=== PATIENT | male | born 1980 | race Caucasian/White ===

== ENCOUNTER → 2018-12-01 11:36 | Emergency (ER) | payer OTHER ==
[~2018-12-01 11:36] MED LIST: Iohexol 300* (CONTRAST) 10 ML SDV IV ONE
[2018-12-01 13:17] LABS: ABS Basophils 0 10^3/ul (0-0.2); ABS Eosinophils 0.1 10^3/ul (0-0.6); ABS Lymphocytes 1.3 10^3/ul (1.0-4.8); ABS Neutrophils 3.8 10^3/ul (1.5-7.7); ABS Nucleated RBC 0 10^3/ul; Eosinophil % 0.8 %; Hematocrit 43 % (36-46); Mean Corpuscular HGB Conc 35 g/dL (31-36); Mean Corpuscular Hemoglobin 31 pg (27-31); Mean Corpuscular Volume 89 fL (80-94); Nucleated Red Blood Cells % 0.1; Platelet Count 173 10^3/uL (150-450); Red Blood Count 4.82 10^6 /uL (4.18-5.48); Red Cell Distribution Width 13 % (10.5-15); White Blood Count 6.1 10^3/uL (3.5-10.8)
[2018-12-01 13:34] LABS: Albumin 4.3 g/dL (3.2-5.2); Albumin/Globulin Ratio 1.5 (1-3); C Reactive Protein 68.1 mg/L (<8.01); Calcium 9.3 mg/dL (8.6-10.3); EGFR Non-African American 106.6 (>60); Globulin 2.8 g/dL (2-4); Potassium 4.7 mmol/L (3.5-5.0); Total Bilirubin 0.8 mg/dL (0.2-1.0); Total Protein 7.1 g/dL (6.4-8.9)
--- NOTE | 2018-12-01 16:26 | ED ---
Neck Pain - HPI Summary HPI Summary: This patient is a 38 year old M presenting to [facility] with a chief complaint of pain and swelling in bilateral lymph nodes with fever of 102F today. Neck pain currently rated 8/10 upon triage. He reports pain and swelling on the left side of his neck for the past few days for which he saw his primary care provider who did an Xray and found a stone in the salivary gland. He states his provider does not think his current symptoms are related to the recent findings. Patient is currently taking Amoxicillin. Patient denies SOB, throat pain, post nasal drip, and difficulty swallowing. - History of Current Complaint Chief Complaint: EDNeckComplaint Stated Complaint: PT STATES HE HAS BACTERIAL INFECTION IN LYMPH NODE Hx Obtained From: Patient Onset/Duration Of Injury/Symptoms: Days Mechanism Of Injury: No Known Trauma Timing: Constant Onset/Duration: Gradual Onset Pain Intensity: 8 Pain Scale Used: 0-10 Numeric Location: Diffuse - lymph nodes Character: Other: - swelling Alleviating Factors: Nothing Associated Signs & Symptoms: Positive: Swelling, Fever - Allergies/Home Medications Allergies/Adverse Reactions: Allergies Allergy/AdvReac Type Severity Reaction Status Date / Time No Known Allergies Allergy Verified 12/01/18 11:44 Home Medications: Home Medications NK [No Home Medications Reported] 12/01/18 [History Confirmed 12/01/18] PMH/Surg Hx/FS Hx/Imm Hx Cardiovascular History: Denies: Hx Hypertension Respiratory History: Reports: Other Respiratory Problems/Disorders - 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 Negative: Sore Throat, Nasal Discharge Negative: Shortness Of Breath All Other Systems Reviewed And Are Negative: Yes Physical Exam - Summary Physical Exam Summary: VITAL SIGNS: Reviewed. GENERAL: Patient is a well-developed and nourished male who is lying comfortable in the stretcher. Patient is not in any acute respiratory distress. HEAD AND FACE: No signs of trauma. No ecchymosis, hematomas or skull depressions. No sinus tenderness. EYES: PERRLA, EOMI x 2, No injected conjunctiva, no nystagmus. EARS: Hearing grossly intact. Ear canals and tympanic membranes are within normal limits. MOUTH: Oropharynx within normal limits. NECK: Bilateral lymphadenopathy which is tender to palpation, trachea is midline , , no JVD, no carotid bruit, no c-spine tenderness, neck with full ROM. CHEST: Symmetric, no tenderness at palpation LUNGS: Clear to auscultation bilaterally. No wheezing or crackles. CVS: Regular rate and rhythm, S1 and S2 present, no murmurs or gallops appreciated. ABDOMEN: Soft, non-tender. No signs of distention. No rebound no guarding, and no masses palpated. Bowel sounds are normal. EXTREMITIES: FROM in all major joints, no edema, no cyanosis or clubbing. NEURO: Alert and oriented x 3. No acute neurological deficits. Speech is normal and follows commands. SKIN: Dry and warm Triage Information Reviewed: Yes Vital Signs On Initial Exam: Initial Vitals Temp Pulse Resp BP Pulse Ox 98.3 F 75 16 123/91 99 12/01/18 11:39 12/01/18 11:39 12/01/18 11:39 12/01/18 11:39 12/01/18 11:39 Vital Signs Reviewed: Yes Diagnostics - Vital Signs Vital Signs Temp Pulse Resp BP Pulse Ox 12/01/18 14:21 98.5 F 71 12 147/81 100 12/01/18 11:39 98.3 F 75 16 123/91 99 - Laboratory Lab Results: Lab Results 12/01/18 12/01/18 Range/Units 13:10 13:10 WBC 6.1 (3.5-10.8) 10^3/uL RBC 4.82 (4.18-5.48) 10^6 /uL Hgb 15.0 (14.0-18.0) g/dL Hct 43 (36-46) % MCV 89 (80-94) fL MCH 31 (27-31) pg MCHC 35 (31-36) g/dL RDW 13 (10.5-15) % Plt Count 173 (150-450) 10^3/uL MPV 9.0 (7.4-10.4) fL Neut % (Auto) 61.9 % Lymph % (Auto) 21.0 % Baker % (Auto) 15.5 % Eos % (Auto) 0.8 % Baso % (Auto) 0.8 % Absolute Neuts (auto) 3.8 (1.5-7.7) 10^3/ul Absolute Lymphs (auto) 1.3 (1.0-4.8) 10^3/ul Absolute Monos (auto) 1.0 H (0-0.8) 10^3/ul Absolute Eos (auto) 0.1 (0-0.6) 10^3/ul Absolute Basos (auto) 0 (0-0.2) 10^3/ul Absolute Nucleated RBC 0 10^3/ul Nucleated RBC % 0.1 Sodium 137 (135-145) mmol/L Potassium 4.7 (3.5-5.0) mmol/L Chloride 103 (101-111) mmol/L Carbon Dioxide 29 (22-32) mmol/L Anion Gap 5 (2-11) mmol/L BUN 13 (6-24) mg/dL Creatinine 0.81 (0.67-1.17) mg/dL Est GFR ( Amer) 129.0 (>60) Est GFR (Non-Af Amer) 106.6 (>60) BUN/Creatinine Ratio 16.0 (8-20) Glucose 109 H (70-100) mg/dL Calcium 9.3 (8.6-10.3) mg/dL Total Bilirubin 0.80 (0.2-1.0) mg/dL AST 23 (13-39) U/L ALT 28 (7-52) U/L Alkaline Phosphatase 50 (34-104) U/L C-Reactive Protein 68.10 H (<8.01) mg/L Total Protein 7.1 (6.4-8.9) g/dL Albumin 4.3 (3.2-5.2) g/dL Globulin 2.8 (2-4) g/dL Albumin/Globulin Ratio 1.5 (1-3) Result Diagrams: 12/01/18 13:10 12/01/18 13:10 Lab Statement: Any lab studies that have been ordered have been reviewed, and results considered in the medical decision making process. - CT Neck CT CT Interpretation Completed By: Radiologist Summary of CT Findings: 1. HETEROGENEOUS, ENHANCING, ENLARGED LYMPH NODES PREDOMINANTLY ALONG THE POSTERIOR. CERVICAL CHAIN ON THE RIGHT WITH ADJACENT INFLAMMATORY CHANGE. RECOMMEND CONSIDERATION OF. TISSUE SAMPLING. 2. RIGHT SUBMANDIBULAR SIALOLITHIASIS WITHOUT SALIVARY DUCTAL DILATATION. ED Physician has reviewed this report. Neck Course/Dx - Course Assessment/Plan: This patient is a 38-year-old male who presents to the emergency department with chief complaint of having painful lymph nodes in both sides of the neck. The patient was diagnosed with lymphadenopathy and salivary stone on Sunday by PCP and he was placed on Augmentin. In the physical exam he has a bilateral lymphadenopathy which is painful and tender in both sides of the neck. There is no airway compromise. The pharynx is not erythematous and has no swelling of the tongue or lips. Test results without any significant abnormality except for glucose of 109 and CRP of 68.1. Neck soft tissue IMPRESSION: 1. HETEROGENEOUS, ENHANCING, ENLARGED LYMPH NODES PREDOMINANTLY ALONG THE POSTERIOR. CERVICAL CHAIN ON THE RIGHT WITH ADJACENT INFLAMMATORY CHANGE. RECOMMEND CONSIDERATION OF TISSUE SAMPLING. 2. RIGHT SUBMANDIBULAR SIALOLITHIASIS WITHOUT SALIVARY DUCTAL DILATATION. I discussed my physical exam is findings with a Merrick Huang [employer] MAN from oncology and she will consult for this patient. She recommends a possible biopsy. I discussed my physical exam and findings with Dr. Miles from the hospital services was accepted the patient for admission. The patient was also was given Rocephin to cover for sialadenitis. Patient is hemoglobin after stable alert and oriented 3. - Diagnoses Provider Diagnoses: Lymphadenopathy of head and neck, Sialadenitis - Physician Notifications Discussed Care Of Patient With: Merrick Huang - oncology Time Discussed With Above Provider: 17:22 Instructed by Provider To: Admit As Inpatient - accepted for admission by Dr. Miles at 1748 Discharge - Sign-Out/Discharge Documenting (check all that apply): Patient Departure - admit - Discharge Plan Condition: Stable Disposition: HOME Patient Education Materials: Lymphadenopathy (ED) Referrals: Merrick Huang PA [Physician Household Appliances Salesperson] - Elmer Lazo MD [Primary Care Provider] - 5 Days Additional Instructions: Please call Hematology/Oncology Services at [phone] on Sunday morning to schedule a follow up appointment and to schedule a Fine Needle Biopsy. You can tell the portable power tool repairer that RADHA Purdy is aware of your situation and need for follow up. Resume antibiotic as prescribed by primary care provider. Avoid steroids such as PREDNISONE. Take Tylenol for pain/fever. If any new/worsening symptoms please do not hesitate to return to the Emergency Department. Have a very low threshold for returning. - Billing Disposition and Condition Condition: STABLE Disposition: Admitted to [facility] - Attestation Statements Document Initiated by Chang: Yes Documenting Scribe: Bina Junior Provider For Whom Chang is Documenting (Include Credential): Cas Johnsno MD Scribe Attestation: IBina, scribed for Cas Johnson MD on 12/02/18 at 0738. Scribe Documentation Reviewed: Yes Provider Attestation: The documentation as recorded by the Bina jean accurately reflects the service I personally performed and the decisions made by Cas paris MD Status of Scribe Document: Viewed
[2018-12-01 20:33] LABS: Influenza A Molecular NEGATIVE (Negative); Influenza B Molecular NEGATIVE (Negative)
[2018-12-01 21:06] VITALS: BP 142/94
--- NOTE | 2018-12-01 23:23 | CONS ---
CC: Dr. Elmer Lazo * CONSULTATION NOTE: DATE OF CONSULT: 12/01/18 - EMERGENCY DEPT PRIMARY CARE PROVIDER: Dr. Elmer Lazo at [place]. REQUESTING PHYSICIAN CONSULT: Dr. Johnson. ATTENDING PHYSICIAN: Dr. Fall; dictated by Aydee Gonzalez NP. REASON FOR CONSULTATION: Admission to inpatient/observation status. HISTORY OF PRESENT ILLNESS/HOSPITAL COURSE: Mr. Valentin is a 38-year-old male with a past medical history significant for anxiety; who presented to the emergency department today, 12/01/18 with complaints of pain and neck swelling and bilateral lymph nodes. 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 On Sunday, he has noticed his glands were more swollen and now involving left side and pain which was "shooting" and was causing a headache. He was seen by his primary care provider, Dr. Dr. Lawrecne Lazo at [facility]. This provider started him on amoxicillin and ordered an x-ray of his neck. X- ray revealed "a stone" in salivary gland. His primary care provider stated he did not think his lymphadenopathy was related to the x-ray findings. Therefore, his primary care provider sent him to the emergency department for a CT imaging of his neck. He reports that initially starting on , he was having temps anywhere from 99 to 102. He was also having chills. He reports his last fever was Sunday. He is currently afebrile. Last dose of Tylenol was Sunday. The patient reports that while here in the emergency department, his pain has improved without intervention. The patient is hoping for discharge. The patient denies shortness of breath, throat pain, postnasal drip, difficulty swallowing or difficulty breathing. While in the emergency department, the patient had a CT of his neck, which revealed heterogenous, enhancing, enlarged lymph nodes predominantly along the posterior cervical chain on the right with adjacent inflammatory changes. Recommend consideration of tissue sampling. Right submandibular sialolithiasis without salivary duct dilatation. The emergency room provider did contact RADHA Purdy from Oncology, who recommended a biopsy. Provider in the emergency room also consulted the hospitalist service for admission. This provider evaluated the patient in the emergency room. The patient is breathing with ease. His vital signs are stable. He is afebrile. He has no leukocytosis. His labs are unremarkable with the exception of CRP of 68.10. His mono screen is negative. His pain is controlled without intervention. The patient is hoping for discharge home. Given the patient's presentation and wish for discharge home, I spoke with RADHA Purdy. We discussed the patient's status and plan. RADHA Purdy is agreeable for the patient to be discharged home and follow up this week with the oncology office and for a FNA of lymph nodes. I discussed this with the patient who was happy to be discharged home. PAST MEDICAL HISTORY: Anxiety. PAST SURGICAL HISTORY: Appendectomy. HOME MEDICATIONS: Xanax 0.25 mg t.i.d. p.r.n. anxiety. ALLERGIES: No known drug allergies. FAMILY HISTORY: Mom has kidney stones. Dad has osteoarthritis. SOCIAL HISTORY: The patient is a non-smoker. The patient is occasional drinker. He reports 2 to 3 beers 3 to 4 times a week. The patient denies drugs. The patient is an artist. The patient is . REVIEW OF SYSTEMS: A 14-point review of systems was performed and all pertinent positive and negative findings are in the HPI. All others are negative. PHYSICAL EXAM: General: Mr. Valentin is a 38-year-old male. He is sitting in bed. He is in no acute distress. Vital Signs: Temperature 98.8, HR 88, RR 16, O2 saturation 98% on room air, BP 119/76. HEENT: EOMs intact. PERRLA. Sclera without icterus. Auditory canals patent. Tympanic membranes are within normal limits. Oral mucosa is moist without lesions. Posterior pharynx is free from lesions, exudate, erythema. Neck: Neck is supple. Full ROM. The patient has anterior and posterior cervical lymphadenopathy. No supra or subclavicular lymphadenopathy. No submandibular lymphadenopathy. No axillary lymphadenopathy. Respiratory: Symmetrical chest expansion. Lungs are clear throughout. No accessory muscle use. No wheezes, crackles or rhonchi. Cardiac: S1, S2 present. Regular rate and rhythm. No murmurs, rubs, or gallops. Abdomen: Soft and nontender. Bowel sounds x4. Extremities: No edema. No clubbing or cyanosis. No pain or deformities. Musculoskeletal: Full range of motion. No pain or deformities. Neuro: Awake, alert, oriented x4. Motor strength is 5/5 throughout. Steady gait. Skin: Grossly intact. DIAGNOSTIC STUDIES/LAB DATA: WBC 6.1, hemoglobin 15, hematocrit 43, platelets 173. Chemistry: Sodium 137, potassium 4.7, chloride 103, BUN 13, creatinine is 0.81, glucose 109, CRP 68.10. [place] spot negative. Flu negative. Neck CT: Impression: Heterogenous, enhancing, enlarged lymph nodes predominantly along the posterior cervical chain on the right with adjacent inflammatory changes. Recommend consideration of tissue sampling. Right submandibular sialolithiasis without salivary ductal dilatation. ASSESSMENT AND PLAN: Mr. Valentin is a 38-year-old male with a past medical history significant for anxiety; who presented to the emergency department today with complaints of swollen lymph nodes and neck pain. The patient will be discharged with close followup with Hematology/Oncology. 1. Lymphadenopathy. As mentioned above, the patient will be discharged with close followup with Hematology and Oncology, who I have been in contact with. The patient will be given the office number to call tomorrow morning. RADHA Purdy will also be giving the patient's name and date to the inpatient coordinator. The plan is for the patient to see Hematology/Oncology and to have an FNA lymph nodes. The patient is to continue his amoxicillin that was provided to him by his primary care provider until he is seen by Oncology and instructed otherwise. I have instructed the patient to not take any steroids in the meantime. 2. Fever. The patient is currently afebrile. The patient should continue Tylenol as needed for pain/fever. 3. Anxiety. The patient to continue his anxiety medications as same. 4. Education. The patient was educated on new or worsening symptoms and when to return to emergency department. I have encouraged the patient to have a low threshold and return to the emergency department. I have stressed the importance of monitoring swallowing and breathing due to neck swelling. The patient is currently breathing with ease. TIME SPENT: Approximately 35 minutes was spent on this consultation, greater than half the time was spent [id number] with the patient obtaining my history and performing a physical exam and reviewing my plan of care. The case has been reviewed with my attending, Dr. Fall, who agrees with my plan. AYDEE GONZALEZ, BAND SAWYER [id number]/[facility] #: [id number] CARL
[2018-12-03 15:14] LABS: EBV Capsid Ag IgG Ab Positive (Negative); EBV Capsid Ag IgM Ab Negative (Negative); Epstein-Barr Nuclear Antigen Positive (Negative)
== END | disposition home or self-care (01) ==
LOC: ED 11:36
DX: R59.0 Localized enlarged lymph nodes (principal); K11.20 Sialoadenitis, unspecified
CPT/HCPCS: 36415; 70492; 80053; 85025; 86140; 86308; 86664; 86665; 99282; Q9967